=== PATIENT | female | born 1995 | race African-American/Black ===

== ENCOUNTER 2020-10-19 15:20 | Emergency (ER) | payer OTHER, MEDICAID, SELFPAY ==
[2020-10-19 15:25] VITALS: BP 152/88; PULSE 81; RESP 18; TEMP 36.6; O2SAT 100
--- NOTE | 2020-10-19 15:57 | ED.FEMALEGU ---
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 LMP 1 month ago. Last sexual activity 4 weeks ago. Denies any previous STD. Patient is A1. Denies . No abdominal pain. No fever. No cough cold congestion. Related Data Previous Rx's Medication Instructions Recorded metronidazole 500 mg PO BID #14 tab 10/19/20 Allergies Allergy/AdvReac Type Severity Reaction Status Date / Time No Known Drug Allergies Allergy Verified 10/19/20 17:44 Review of Systems Review of Systems Narrative: GENERAL: Denies chills, fatigue, malaise, fever, sweats. HEENT: Denies sinus pain, ear pain, sore throat RESPIRATORY: Denies dyspnea, cough CARDIOVASCULAR: Denies chest pain, palpitations GASTROINTESTINAL: Denies nausea, vomiting, abdominal pain : Denies dysuria, frequency, hematuria, complains of discharge MUSCULOSKELETAL: denies muscle or bony pain SKIN: Denies rash, skin lesions NEUROLOGIC: Denies weakness, numbness ROS Unobtainable: All systems reviewed & are unremarkable except as noted in HPI and below Exam Narrative Exam Narrative: GENERAL: in no distress, not toxic not dyspneic HEAD: Normocephalic. CARDIOVASCULAR: Regular rate and rhythm without murmurs RESPIRATORY: Clear to auscultation. Breath sounds equal bilaterally. No wheezes, rales, or rhonchi. 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 No lesions or vesicles on the labia or introitus, no vaginal discharge, no blood or discharge in the vagina. No CMT. No adnexal tenderness NEURO: AOx4. SKIN: Warm and dry PSYCH: Not anxious, is cooperative Initial Vital Signs Initial Vital Signs: Vital Signs Temperature 97.8 F 10/19/20 15:25 Pulse Rate 81 10/19/20 15:25 Respiratory Rate 18 10/19/20 15:25 Blood Pressure 152/88 H 10/19/20 15:25 Pulse Oximetry 100 10/19/20 15:25 Course Course Course Narrative: Reviewed with patient results. No new issues Orders Ordered: ED Orders 10/19/20 15:34 Test Urine Stat Urinalysis and Microscopic Stat Urine Culture Stat Urine Microscopic Stat 10/19/20 16:14 Wet Prep Tric BV Rosio Stat Discontinued Medications Ceftriaxone Sodium (Ceftriaxone 1,000 Mg Vial) 500 mg IM NOW ONE Stop: 10/19/20 17:41 Last Admin: 10/19/20 17:54 Dose: 500 mg Documented by: BL Lidocaine HCl (Lidocaine 1% 20 Ml) 2.1 ml INJ NOW ONE Stop: 10/19/20 17:41 Last Admin: 10/19/20 18:03 Dose: Not Given Documented by: LB Metronidazole (Metronidazole 500 Mg Tablet) 500 mg PO NOW ONE Stop: 10/19/20 17:42 Last Admin: 10/19/20 17:54 Dose: 500 mg Documented by: LB Reevaluation(s) Reevaluation #1: Treatment plan reviewed with patient. Agrees with Rocephin empirically. Doxycycline can be called in if abnormal cultures in 2 days. Time: 17:42 Vital Signs Vital signs: Vital Signs - 8 hr 10/19/20 15:25 10/19/20 18:17 Temperature 97.8 F Pulse Rate 81 72 Respiratory Rate 18 16 Blood Pressure 152/88 H 148/98 H Pulse Oximetry 100 98 MDM - Female Genitourinary Differential Diagnosis Differential diagnosis: Likely urinary tract infection, bacterial vaginosis, trichomoniasis and cervicitis Lab Data Attestation: I reviewed the patient's lab results. Labs: Lab Results 10/19/20 10/19/20 10/19/20 Range/Units 15:34 15:34 15:34 Urine Color Yellow Urine Appearance Sl cloudy Urine pH 5.0 (4.5-8.0) Ur Specific [place] 1.025 (1.000-1.035) Urine Protein Negative (Negative) Urine Glucose (UA) Negative (Negative) g/dL Urine Ketones Negative (NEGATIVE) Urine Occult Blood 1+ H (Negative) Urine Nitrate Negative (Negative) Urine Bilirubin Negative (NEGATIVE) Urine Urobilinogen 0.2 (0.2) E.U./dL Ur Leukocyte Esterase 1+ H (NEGATIVE) Urine RBC 0-1/hpf 0-1/hpf (0-5/HPF) Urine WBC 10-30/hpf H 5-10/hpf H (0-5/HPF) Ur Squamous Epith Cells 1-5 /hpf 1-5 /hpf (0-5/HPF) Urine Bacteria Few (2-10) H Few (2-10) H (None) Ur Culture Indicated? Specimen cultured Culture not indicate Micro UA Comment Urine Test Negative (Negative) Point of Care Testing Test Results Negative Urine Dip Bedside Urine Glucose Negative Bedside Urine Bilirubin - Negative Bedside Urine Ketone - Negative Urine Specific [place] 1.030 Bedside Urine Occult Blood +/- Bedside Urine pH 6.0 Bedside Urine Protein - Negative Bedside Urine Urobilinogen - Negative Bedside Urine Nitrite - Negative Bedside Urine Leukocytes + 70 Esterase MDM Narrative Medical decision making narrative: Appropriate for discharge home. Patient agrees with treatment plan. Discharge Plan Departure Patient Disposition: Home Clinical Impression: Trichomoniasis Instructions: DI for Trichomoniasis Activity Restrictions/Additional Instructions: Return if worse or if any questions or concerns. Must contact sexual partners of infection. No sexual activity until seen by family doctor. Call provided clinic list if you need a provider. Do not take alcohol with new prescription. It will make you very sick. Prescription has been sent to your [facility] Prescriptions: New metronidazole 500 mg tablet 500 mg PO BID Qty: 14 RF: 0
[2020-10-19 16:08] LABS: RBC Urine 0-1/HPF (0-5/HPF); WBC Urine 10-30/HPF (0-5/HPF)
[2020-10-19 16:09] LABS: Bacteria Urine Few (2-10); Culture Indicated Urine Specimen Cultured; Squamous Epithelial Cell Urine 1-5 /HPF (0-5/HPF)
[2020-10-19 16:13] LABS: Pregnancy Test Urine Negative (Negative)
[2020-10-19 17:04] LABS: Appearance Urine UA SL CLOUDY; Bilirubin Urine UA NEGATIVE (NEGATIVE); Color Urine UA YELLOW; Glucose Urine UA NEGATIVE (Negative); Ketones Urine UA NEGATIVE (NEGATIVE); Leukocyte Esterase Urine UA 1+ (NEGATIVE); Nitrite Urine UA NEGATIVE (Negative); Occult Blood Urine UA 1+ (Negative); Protein Urine UA NEGATIVE (Negative); Specific Gravity Urine UA 1.025 (1.000-1.035); Urobilinogen Urine UA 0.2 E.U./dL (0.2)
[2020-10-19 17:07] LABS: RBC Urine 0-1/HPF (0-5/HPF); WBC Urine 5-10/HPF (0-5/HPF)
[2020-10-19 17:08] LABS: Bacteria Urine Few (2-10); Squamous Epithelial Cell Urine 1-5 /HPF (0-5/HPF)
[2020-10-19] MEDS: metroNIDAZOLE 500 MG TABLET PO (17:54)
[2020-10-19] MEDS: cefTRIAXone 1,000 MG VIAL 500 MG IM (17:54)
[2020-10-19] MEDS: LIDOCAINE 1% (PF) 2 ML (17:55)
--- NOTE | 2020-10-19 17:59 | PC.NURSE ---
Pt presented with vaginal discharge and itching; pelvic exam performed, STD detected. Antibiotics administered; pt tolerated well.
[2020-10-19 18:17] VITALS: BP 148/98; PULSE 72; RESP 16; O2SAT 98
[2020-10-22 00:51] LABS: Chlamydia trachomatis NAA Negative (Negative); Neisseria gonorrhoeae NAA Negative (Negative)
== END 2020-10-19 18:25 | disposition home or self-care (01) ==
PROVIDERS: Emergency Provider Emergency Medicine
DX: A59.01 Trichomonal vulvovaginitis (principal)
CPT/HCPCS: 81001; 81003; 81015; 81025; 87086; 87147; 87210; 87491; 87591; 96372; 99282; 99283; J0696

== ENCOUNTER → 2020-11-03 10:44 | Outpatient (CLI) | payer OTHER, MEDICAID, SELFPAY ==
[2020-11-03 11:48] LABS: Hemoglobin A1C% w Est Avg Glu 5.7 % (4.0-6.0)
[2020-11-03 12:15] LABS: Alanine Aminotransferase 29 IU/L (<35); Albumin 4.1 g/dL (3.5-5.0); Albumin Globulin Ratio 1.2 (1.0-2.8); Alkaline Phosphatase 71 U/L (38-126); Aspartate Aminotransferase 25 IU/L (14-36); BUN Creatinine Ratio 15.2 (6-22); Bilirubin Total 0.2 mg/dL (0.2-1.3); Blood Urea Nitrogen 12 mg/dL (7-17); Calcium 9.1 mg/dL (8.4-10.2); Carbon Dioxide 27 mmol/L (22-32); Chloride 107 mmol/L (98-107); Estimated Glomerular Filt Rate > 60.0 mL/min (>60); Globulin 3.3 g/dL (1.7-4.1); Glucose 99 mg/dL (70-100); HEMOLYSIS < 15 (0-50); Potassium 4.1 mmol/L (3.4-5.1); Sodium 138 mmol/L (137-145); Total Protein 7.4 g/dL (6.3-8.2)
[2020-11-03 12:16] LABS: Add Manual Diff / Slide Review NO; Basophils Absolute Auto 0 /uL (0-100); Basophils Percent Auto 0.6 % (0-2); Eosinophils Absolute Auto 100 /uL (0-450); Eosinophils Percent Auto 1.3 % (2-4); Hematocrit 36.3 % (36-46); Hemoglobin 12.2 g/dL (12.0-16.0); Lymphocytes Absolute Auto 2400 /uL (1100-4500); Lymphocytes Percent Auto 34.7 % (25-40); Mean Corpuscular HGB Conc 33.5 % (30-36); Mean Corpuscular Hemoglobin 29.1 PG (26-34); Mean Corpuscular Volume 86.7 fL (80-100); Monocytes Absolute Auto 500 /uL (0-900); Monocytes Percent Auto 6.6 % (3-14); Neutrophils Absolute Auto 3800 /uL (1500-7000); Neutrophils Percent Auto 56.8 % (50-75); Platelet Count 430 X10^3/uL (150-400); Red Blood Cell Count 4.18 X10^6/uL (4.0-5.2); White Blood Cell Count 6.8 X10^3/uL (4.5-11.0)
[2020-11-03 12:59] LABS: Urine N gonorrhoeae NOT DETECTED
[2020-11-03 14:59] LABS: Urine Chlamydia NOT DETECTED
[2020-11-04 08:10] LABS: RPR Screen Non Reactive (Non Reactive)
[2020-11-04 16:15] LABS: Hepatitis B Surface Antigen NEGATIVE s/c (NEGATIVE)
[2020-11-04 16:33] LABS: HIV 1 & 2 Ab/Ag 4th Gen Combo NEGATIVE (NEGATIVE); Hep C Virus Ab w/Reflex Quant NEGATIVE s/c (NEGATIVE)
[2020-11-04 18:51] LABS: HSV1IGG 8.95 index (0.00-0.90)
[2020-11-06 16:36] LABS: HSV I/II IgM 0.96 Ratio (0.00-0.90)
== END ==
PROVIDERS: PCP Registered Nurse; Referring Provider Registered Nurse; Visit Provider Registered Nurse
DX: Z20.2 Contact with and (suspected) exposure to infections with a predominantly sexual mode of transmission (principal); I10 Essential (primary) hypertension; Z83.3 Family history of diabetes mellitus
CPT/HCPCS: 36415; 80053; 83036; 85025; 86592; 86694; 86695; 86696; 86803; 87340; 87389; 87491; 87591

== ENCOUNTER 2020-11-24 05:31 | Emergency (ER) | payer OTHER, MEDICAID, SELFPAY ==
[2020-11-24 05:48] VITALS: BP 132/59; PULSE 86; RESP 18; TEMP 36.9; O2SAT 99; BMI 46.2
--- NOTE | 2020-11-24 05:53 | ED.FEMALEGU ---
HPI - Female Genitourinary General Chief complaint: Urogenital-Female Stated complaint: vaginal discomfort Time Seen by Provider: 11/24/20 05:35 Source: patient Mode of arrival: Ambulatory Limitations: no limitations History of Present Illness HPI Narrative: 25-year-old female nonsmoker with history of hypertension presents with a chief complaint of 3 days of recurrence of thin white vaginal discharge and vaginal irritation. Additionally, she complains of dysuria and frequency. Her last period was October 25 and she has not been sexually active in well over a month. She was seen here on October 19 and had very similar symptoms complaining of vaginal irritation and discharge the presence of few Trichomonas. 500 mg IM as well as a course of metronidazole. She states that she had a complete resolution of symptoms but her symptoms flared up again 3 days ago as stated. She continues to have what she describes as irritating bumps intravaginally which become quite irritated with wiping after urinating. She's had no fever, chills, or abdominal pain. She denies N/V/D. Complaint: dysuria, UTI, vaginal discharge and possible STD Onset (ago): day(s) Location: labia Quality: Burning and Itching Duration: constant Relieving factors: none Exacerbating factors: urination Urinary symptoms: Dysuria and Frequency Related Data Previous Rx's Medication Instructions Recorded metronidazole 500 mg PO BID #14 tab 10/19/20 albuterol sulfate 90 mcg/actuation 2 puff INHALATION Q4-6H PRN #18 g 11/03/20 aerosol inhaler losartan 50 mg tablet 50 mg PO DAILY 30 Days #30 tab 11/03/20 cephalexin 500 mg PO BID #10 cap 11/24/20 doxycycline hyclate 100 mg PO BID #20 cap 11/24/20 metronidazole 500 mg PO BID 10 Days #20 tab 11/24/20 valacyclovir 1,000 mg PO TID 10 Days #30 tab 11/24/20 Allergies Allergy/AdvReac Type Severity Reaction Status Date / Time No Known Drug Allergies Allergy Verified 11/03/20 10:03 Review of Systems Constitutional Constitutional: Denies chills, Denies fatigue, Denies fever(s), Denies frequent falls, Denies lethargy and Denies weakness Eyes Eyes: Denies change in vision, Denies eye discharge, Denies irritation and Denies loss of vision ENT Ears, Nose, Mouth, and Throat: Denies change in voice, Denies dizziness, Denies neck pain, Denies sore throat and Denies throat swelling Cardiovascular Cardiovascular: Denies chest pain, Denies irregular heart rhythm, Denies lightheadedness, Denies palpitations, Denies dyspnea, Denies dyspnea on exertion and Denies orthopnea Respiratory Respiratory: Denies cough, Denies dyspnea, Denies dyspnea on exertion and Denies wheezing Gastrointestinal Gastrointestinal: Denies abdominal pain, Denies change in bowel habits, Denies diarrhea, Denies nausea and Denies vomiting Genitourinary Genitourinary: Reports dysuria and Reports genital lesions Genitourinary: Reports dysuria, Reports genital pruritis and Reports genital lesions Musculoskeletal Musculoskeletal: Denies neck pain and Denies numbness Integumentary/Breasts Skin/Breast: Denies pruritus, Denies erythema, Denies rash and Denies wounds Neurologic Neurologic: Denies behavioral changes, Denies confusion, Denies dizziness, Denies frequent falls, Denies loss of vision, Denies numbness and Denies weakness Psychiatric Psychiatric: Denies anxiety, Denies behavioral changes, Denies confusion, Denies depression, Denies homicidal ideation and Denies suicidal ideation Endocrine Endocrine: Denies fatigue, Denies flushing and Denies palpitations Hematologic/Lymphatic Hematologic/Lymphatic: Denies easy bruising Allergic/Immunologic Allergic/Immunologic: Denies urticaria, Denies throat swelling and Denies wheezing Patient History Surgical History History of tonsillectomy Family History Father Diabetes mellitus Hypertension Mother Diabetes mellitus Hypertension Grandmother Diabetes mellitus Smoking Status: Never smoker alcohol intake frequency: 0-2 drinks per day Substance Use Type: does not use Exam Narrative Exam Narrative: GEN: AOx3 and in mild distress EYES: Pupils are equal, round, and reactive to light and accommodation. Extraoccular muscles are intact bilaterally. There is no subconjunctival hemorrhage or exudate. CHEST: Lungs are clear to auscultation bilaterally and free of wheezes, rales, or rhonchi. Heart rate is regular rhythm, there are no murmurs, clicks, rubs, or gallops. There is no chest wall tenderness. ABD: Abdomen is soft and nontender. There is no guarding or rebound. Bowel sounds are normal in all 4 quadrants. There is no mass or organomegaly. PELVIC: thin white discharge from cervix, no obvious lesions, ulcers, warts, vesicles noted. No CMT. No adnexal tenderness or fullness. Patient reports irritation with bimanual exam in bilateral introitus. No bumps visualized, but perhaps a bit of small palpable lesion where patient reports discomfort. Exam performed with patient consent and female nursing commercial insurance underwriter at the bedside EXT: Full painless ROM of all extremities with no loss of sensation or strength. SKIN: Warm, pink, and dry. 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 Orders Ordered: ED Orders 11/24/20 05:50 Urine Microscopic Stat 11/24/20 06:21 Genital Culture Stat Wet Prep Tric BV Rosio Stat 11/24/20 06:22 Chlamydia/Gonoc/Myco Genital Stat Discontinued Medications Ceftriaxone Sodium (Ceftriaxone 1,000 Mg Vial) 500 mg IM NOW ONE Stop: 11/24/20 06:24 Lidocaine HCl (Lidocaine 1% 20 Ml) 2.1 ml INJ NOW ONE Stop: 11/24/20 06:24 Vital Signs Vital signs: Vital Signs - 8 hr 11/24/20 05:48 Temperature 98.5 F Pulse Rate 86 Respiratory Rate 18 Blood Pressure 132/59 L Pulse Oximetry 99 MDM - Female Genitourinary Lab Data Labs: Point of Care Testing Test Results Negative Urine Dip Bedside Urine Glucose Negative Bedside Urine Bilirubin - Negative Bedside Urine Ketone - Negative Urine Specific [place] 1.030 Bedside Urine Occult Blood - Negative Bedside Urine pH 6.0 Bedside Urine Protein - Negative Bedside Urine Urobilinogen - Negative Bedside Urine Nitrite - Negative Bedside Urine Leukocytes + 70 Esterase Discharge Plan Departure Patient Disposition: Home Clinical Impression: Herpes Urinary tract infection Qualifiers: Urinary tract infection type: acute cystitis Hematuria presence: without hematuria Qualified Code(s): N30.00 - Acute cystitis without hematuria Instructions: Herpes Simplex Virus Testing, DI for Urinary Tract Infection (UTI) Activity Restrictions/Additional Instructions: *You have been diagnosed with [vaginal discharge, irritation and urinary tract infection.] *What to do: *Take medications as directed *Follow up with your primary care provider in 2-3 days, call for an appointment. Let them know you were seen in the Emergency Department and that we ask that you be seen in follow up *Return to ER if you should have any new, worsening or concerning symptoms, such as [increasing pain, discharge, fever greater than 101 F, other bothersome symptoms] Prescriptions: New valacyclovir 1 gram tablet 1,000 mg PO TID 10 Days Qty: 30 RF: 0 metronidazole 500 mg tablet 500 mg PO BID 10 Days Qty: 20 RF: 0 doxycycline hyclate 100 mg capsule 100 mg PO BID Qty: 20 RF: 0 cephalexin 500 mg capsule 500 mg PO BID Qty: 10 RF: 0 No Action losartan 50 mg tablet 50 mg PO DAILY 30 Days Qty: 30 RF: 2 albuterol sulfate 90 mcg/actuation HFA aerosol inhaler 2 puff inhalation Q4-6H PRN (Reason: shortness of breath or wheezing) Qty: 18 RF: 3 metronidazole 500 mg tablet 500 mg PO BID Qty: 14 RF: 0 Referrals: Anastacio Stuart ARNP [Primary Care Provider] -
[2020-11-24 06:11] LABS: RBC Urine None Seen (0-5/HPF)
[2020-11-24 06:46] LABS: Bacteria Urine Moderate (10-30); Culture Indicated Urine Specimen Cultured; Squamous Epithelial Cell Urine 1-5 /HPF (0-5/HPF); Trichomonas Urine 1-5/HPF (None Seen); WBC Urine 1-5/HPF (0-5/HPF)
[2020-11-24] MEDS: cefTRIAXone 1,000 MG VIAL 500 MG IM (06:50)
[2020-11-24] MEDS: LIDOCAINE 1% 20 ML 2.1 ML INJ (06:51)
[2020-11-27 12:09] LABS: Chlamydia trachomatis Negative (Negative); Mycoplasma genitalium Negative (Negative); Neisseria gonorrhoeae Negative (Negative)
== END 2020-11-24 07:15 | disposition home or self-care (01) ==
PROVIDERS: Emergency Provider Emergency Medicine; PCP Registered Nurse
DX: N30.00 Acute cystitis without hematuria (principal); B00.9 Herpesviral infection, unspecified
CPT/HCPCS: 81003; 81015; 81025; 87070; 87077; 87086; 87147; 87205; 87210; 87491; 87563; 87591; 96372; 99283; 99284; J0696

== ENCOUNTER → 2020-12-22 10:53 | Outpatient (CLI) | payer OTHER, MEDICAID, SELFPAY ==
[2020-12-23 11:36] LABS: Candida species Negative (Negative); Gardnerella vaginalis Negative (Negative); Trichomoas vaginalis Negative (Negative)
[2020-12-24 01:35] LABS: Chlamydia trachomatis NAA Negative (Negative); Neisseria gonorrhoeae NAA Negative (Negative)
== END ==
PROVIDERS: PCP Registered Nurse; Visit Provider Obstetrics & Gynecology
DX: R39.89 Other symptoms and signs involving the genitourinary system (principal); Z20.2 Contact with and (suspected) exposure to infections with a predominantly sexual mode of transmission
CPT/HCPCS: 87480; 87491; 87510; 87591; 87660

== ENCOUNTER → 2021-01-01 13:26 | Outpatient (CLI) | payer OTHER, MEDICAID, SELFPAY ==
[2021-01-01 14:48] LABS: Free T4, Direct Thyroxine 1.02 ng/dL (0.78-2.19); Prolactin 46.4 ng/mL (3.0-18.6)
[2021-01-01 15:02] LABS: Thyroid Stimulating Hormone 4.82 uIU/mL (0.47-4.68)
[2021-01-01 15:17] LABS: Follicle Stimulating Hormone 4.61 mIU/mL
[2021-01-01 15:33] LABS: Estradiol, Total 44.7 pg/mL
== END ==
PROVIDERS: PCP Registered Nurse; Referring Provider Obstetrics & Gynecology; Visit Provider Obstetrics & Gynecology
DX: N91.1 Secondary amenorrhea (principal)
CPT/HCPCS: 36415; 82670; 83001; 84146; 84439; 84443

== ENCOUNTER → 2021-01-02 07:23 | Outpatient (CLI) | payer OTHER, MEDICAID, SELFPAY ==
--- NOTE | 2021-01-02 07:25 | DI.US.S_ITS ---
PROCEDURE: US PELVIC COMPLETE INDICATIONS: AMENORRHEA TECHNIQUE: Real-time scanning was performed of the pelvic organs, with image documentation. Additional endovaginal scanning was necessary due to incomplete visualization of the adnexal and endometrial structures by transabdominal scanning. COMPARISON: None. FINDINGS: Uterus: Uterus is normal in size at 7.0 x 3.7 x 4.7 cm. The endometrium measures 11 mm in combined thickness. . There is endometrial hyperplasia, with no associated hyperemia or internal vascularity. Subcentimeter cystic appearing foci at the fundus Ovaries: Right ovary measures 3.9 x 2.9 x 2.8 cm. The left ovary measures 4.5 x 4.3 x 6.7 cm. Simple appearing 4.4 x 3.6 x 3.3 cm cyst of the left ovary Other: No pathologic free abdominal or pelvic fluid. IMPRESSION: Hyperplastic and heterogeneous appearance of the endometrium, technically nonspecific finding. Recommend clinical correlation. Recommend ultrasound follow-up and if this persists, histologic sampling could be considered based on clinical suspicion. 4.4 cm simple appearing left ovarian cyst. If the patient is symptomatic, a follow-up study in 6-12 weeks could be performed to document resolution. Dictated by: Mahamed Weathers M.D. on 01/02/2021 at 9:51 Approved by: Mahamed Weathers M.D. on 01/02/2021 at 9:56
== END ==
PROVIDERS: PCP Registered Nurse; Referring Provider Obstetrics & Gynecology; Visit Provider Obstetrics & Gynecology
DX: N91.2 Amenorrhea, unspecified (principal); N83.202 Unspecified ovarian cyst, left side
CPT/HCPCS: 76830; 76856

== ENCOUNTER → 2021-01-06 08:02 | Outpatient (CLI) | payer OTHER, MEDICAID, SELFPAY ==
[2021-01-06 11:04] LABS: Prolactin 44.8 ng/mL (3.0-18.6)
== END ==
PROVIDERS: PCP Registered Nurse; Referring Provider Obstetrics & Gynecology; Visit Provider Obstetrics & Gynecology
DX: N91.1 Secondary amenorrhea (principal)
CPT/HCPCS: 36415; 84146